=== PATIENT | female | born 1950 | race Caucasian/White ===

== ENCOUNTER 2019-08-12 12:48 | Inpatient (IN) | payer MEDICARE ==
[~2019-08-12] VITALS: Ht 167.6 cm; Wt 65.8 kg
[2019-08-12] MEDS ORDERED: DULO60 PO (13:12)
[2019-08-12] MEDS ORDERED: ROSU5 PO (13:13)
[2019-08-12] MEDS ORDERED: ACYC200 PO (13:14)
[2019-08-12] MEDS ORDERED: CENTRUM SILVER1 EAC2 PO (13:14)
[2019-08-12 13:25] LABS: BASOPHILS ABSOLUTE AUTO 0.04 K/mm3 (0.00-0.23); BASOPHILS PERCENT AUTO 0 % (0-2); EOSINOPHILS ABSOLUTE AUTO 0.06 K/mm3 (0.00-0.68); EOSINOPHILS PERCENT AUTO 0 % (0-6); Hematocrit 45.8 % (33.0-51.0); Hemoglobin 15.3 g/dL (11.5-16.0); IMMATURE GRAN ABSOLUTE AUTO 0.06 K/mm3 (0.00-0.10); IMMATURE GRAN PERCENT AUTO 0 % (0-1); LYMPHOCYTES ABSOLUTE AUTO 1.58 K/mm3 (0.84-5.20); LYMPHOCYTES PERCENT AUTO 8 % (21-46); MONOCYTES ABSOLUTE AUTO 1.68 K/mm3 (0.16-1.47); MONOCYTES PERCENT AUTO 9 % (4-13); Mean Corpuscular HGB 31.2 pg (26.0-34.0); Mean Corpuscular HGB Conc 33.4 g/dL (31.5-36.5); Mean Corpuscular Volume 93 fL (80-100); Mean Platelet Volume 8.6 fL (9.1-12.4); NEUTROPHILS ABSOLUTE AUTO 15.76 K/mm3 (1.96-9.15); NEUTROPHILS PERCENT AUTO 82 % (41-73); Platelet Count 251 K/mm3 (150-400); RDW Coefficient Variation 12.9 % (11.7-14.2); RDW Standard Deviation 44.2 fL (35.1-46.3); Red Blood Cell Count 4.91 M/mm3 (3.80-5.20); White Blood Cell Count 19.18 K/mm3 (4.00-11.30)
[2019-08-12 13:41] LABS: Alanine Aminotransfer (ALT/SGP 25 U/L (12-78); Albumin, Blood 3.7 g/dL (3.4-5.0); Albumin/Globulin Ratio 0.9 (0.8-1.8); Alk Phos 72 U/L (50-136); Anion Gap 8 mmol/L (6-16); Aspartate Aminotrans (AST/SGOT 22 U/L (12-37); Bilirubin, Total 0.8 mg/dL (0.1-1.0); Blood Urea Nitrogen 8 mg/dL (8-24); Bun/Creatinine Ratio 11.2 (12.0-20.0); CO2, Blood 26 mmol/L (21-32); Calcium, Blood 8.8 mg/dL (8.5-10.1); Chloride, Blood 103 mmol/L (98-108); Creatinine, Blood 0.71 mg/dL (0.40-1.00); Glomerular Filtration Rate >60 (60-); Glucose, Blood 90 mg/dL (70-99); Potassium, Blood 3.1 mmol/L (3.5-5.5); Sodium, Blood 137 mmol/L (136-145); Total Protein, Blood 7.7 g/dL (6.4-8.2)
[2019-08-12 14:42] LABS: Source, Urine Clean Catch
[2019-08-12 14:59] LABS: Bilirubin, Urine Neg (Neg); Blood, Urine 2+ (Neg); Glucose Qualitative, Urine Neg (Neg); Ketones, Urine 2+ (Neg); Leukocyte Esterase, Urine Neg (Neg); Nitrite, Urine Neg (Neg); Protein, Urine 2+ (Neg); Specific Gravity, Urine 1.015 (1.003-1.022); Urobilinogen, Urine NORM (Normal)
[2019-08-12 15:01] LABS: Color, Urine Yellow (P-Yellow)
[2019-08-12 15:02] LABS: Appearance, Urine Clear (Clear)
[2019-08-12 15:03] LABS: Bacteria Rare /hpf; Red Blood Cells, Urine 0-2 /hpf (0-2); Squamous Epithelial Cells Rare /hpf (Few); White Blood Cells, Urine 0-2 /hpf (0-5)
[2019-08-12 16:55] LABS: Adenovirus F 40/41 Not Detected (NOT DETECT); Astrovirus Not Detected (NOT DETECT); Campylobacter Sp Not Detected (NOT DETECT); Cryptosporidium Not Detected (NOT DETECT); Cyclospora Cayetanensis Not Detected (NOT DETECT); E. Coli O157 Not Detected (NOT DETECT); Entamoeba Histolytica Not Detected (NOT DETECT); Enteroaggregative E. coli-EAEC Not Detected (NOT DETECT); Enteropathogenic E. coli-EPEC Not Detected (NOT DETECT); Enterotoxigenic E. coli-ETEC Not Detected (NOT DETECT); Giardia Lamblia Not Detected (NOT DETECT); Norovirus GI/GII Not Detected (NOT DETECT); Plesiomonas Shigelloides Not Detected (NOT DETECT); Rotavirus A Not Detected (NOT DETECT); Salmonella Sp Not Detected (NOT DETECT); Sapovirus Not Detected (NOT DETECT); Shiga Toxin-prod E. coli-STEC Not Detected (NOT DETECT); Shigella/Enteroin E. coli-EIEC Not Detected (NOT DETECT); Vibrio Cholerae Not Detected (NOT DETECT); Vibrio Sp Not Detected (NOT DETECT); Yersinia Enterocolitica Not Detected (NOT DETECT)
[2019-08-12] MEDS ORDERED: OCUVITE EYE +1 EACH PO (19:03)
--- NOTE | 2019-08-13 03:05 | NUR ---
RN RESIDENTIAL SUMMARY Patient arrived on floor very painful and stooling almost constantly for first hour and a half in room. Stated bottom feels raw after 4 full days of this. As cramping and pain decreased, patient bowels began to slow down (albeit not a whole lot). Patient had recent jaw reconstructive surgery at [facility] 2nd to sequela of her Rheumatoid arthritis. She is up independently in room, bed locked and low, call light in place, patients questions answered. Patient oob extremely frequently, and doesn't want to connect and reconnect PAS stockings. Have left her knee high teds to put on in AM. Will request Day RN notify MD of patient request for DVT prophlaxis change.
--- NOTE | 2019-08-13 05:27 | NUR ---
SERVICER TRAVEL TRAILERS SUMMARY ADDENDUM 2ND POTASSIUM RIDER HUNG CONCURRENT PIGGYBACK WITH PRIMARY BAG TO RUN SLOWLY AT 2MEQ PER HOUR. ADDING BAG TO PRIMARY OF NS WITH 20MEQ DISCUSSED WITH PHARMACIST FIRST PATIENT WAS UNABLE TO TOLERATE INITIAL POTASSIUM BAG AT ANY RATE GREATER THAN 2 MEQ PER HOUR. LAB WAS ASKED TO RETURN AT 0930 FOR DRAW.
[2019-08-13 09:51] LABS: BASOPHILS ABSOLUTE AUTO 0.02 K/mm3 (0.00-0.23); BASOPHILS PERCENT AUTO 0 % (0-2); EOSINOPHILS ABSOLUTE AUTO 0.08 K/mm3 (0.00-0.68); EOSINOPHILS PERCENT AUTO 1 % (0-6); Hematocrit 36.7 % (33.0-51.0); Hemoglobin 11.8 g/dL (11.5-16.0); IMMATURE GRAN ABSOLUTE AUTO 0.01 K/mm3 (0.00-0.10); IMMATURE GRAN PERCENT AUTO 0 % (0-1); LYMPHOCYTES ABSOLUTE AUTO 1.04 K/mm3 (0.84-5.20); LYMPHOCYTES PERCENT AUTO 12 % (21-46); MONOCYTES ABSOLUTE AUTO 0.69 K/mm3 (0.16-1.47); MONOCYTES PERCENT AUTO 8 % (4-13); Mean Corpuscular HGB 30.6 pg (26.0-34.0); Mean Corpuscular HGB Conc 32.2 g/dL (31.5-36.5); Mean Corpuscular Volume 95 fL (80-100); Mean Platelet Volume 8.6 fL (9.1-12.4); NEUTROPHILS ABSOLUTE AUTO 6.71 K/mm3 (1.96-9.15); NEUTROPHILS PERCENT AUTO 79 % (41-73); Platelet Count 184 K/mm3 (150-400); RDW Standard Deviation 45.3 fL (35.1-46.3); Red Blood Cell Count 3.86 M/mm3 (3.80-5.20); White Blood Cell Count 8.55 K/mm3 (4.00-11.30)
[2019-08-13 10:03] LABS: Anion Gap 3 mmol/L (6-16); Blood Urea Nitrogen 5 mg/dL (8-24); Bun/Creatinine Ratio 9.5 (12.0-20.0); CO2, Blood 29 mmol/L (21-32); Calcium, Blood 8.2 mg/dL (8.5-10.1); Chloride, Blood 106 mmol/L (98-108); Creatinine, Blood 0.53 mg/dL (0.40-1.00); Glomerular Filtration Rate >60 (60-); Glucose, Blood 105 mg/dL (70-99); Sodium, Blood 138 mmol/L (136-145)
--- NOTE | 2019-08-13 11:06 | NUR ---
PER OK TO USE CHET HOSE AND CANCEL SCD'S.
--- NOTE | 2019-08-13 15:25 | NUR ---
ALERT. ORIENTED. INDEPENDENT IN ROOM W/STEADY GAIT. MULTIPLE WATERY STOOLS. MEDS FOR ABD PAIN W/TORADOL WORKING WELL. UNLABORED RESPIRATIONS. ABLE TO MAKE NEEDS KNOWN. INDEPENDENT IN SHOWER. BED IN LOW POSITION. USING HOME LAPTOP MOST OF SHIFT. [facility]
[2019-08-14 05:30] LABS: BASOPHILS ABSOLUTE AUTO 0.01 K/mm3 (0.00-0.23); BASOPHILS PERCENT AUTO 0 % (0-2); EOSINOPHILS ABSOLUTE AUTO 0.11 K/mm3 (0.00-0.68); EOSINOPHILS PERCENT AUTO 1 % (0-6); Hematocrit 38.2 % (33.0-51.0); Hemoglobin 12.2 g/dL (11.5-16.0); IMMATURE GRAN ABSOLUTE AUTO 0.01 K/mm3 (0.00-0.10); IMMATURE GRAN PERCENT AUTO 0 % (0-1); LYMPHOCYTES ABSOLUTE AUTO 0.88 K/mm3 (0.84-5.20); LYMPHOCYTES PERCENT AUTO 11 % (21-46); MONOCYTES ABSOLUTE AUTO 0.68 K/mm3 (0.16-1.47); MONOCYTES PERCENT AUTO 9 % (4-13); Mean Corpuscular HGB 30.4 pg (26.0-34.0); Mean Corpuscular HGB Conc 31.9 g/dL (31.5-36.5); Mean Corpuscular Volume 95 fL (80-100); Mean Platelet Volume 8.6 fL (9.1-12.4); NEUTROPHILS ABSOLUTE AUTO 6.03 K/mm3 (1.96-9.15); NEUTROPHILS PERCENT AUTO 78 % (41-73); Platelet Count 202 K/mm3 (150-400); RDW Coefficient Variation 12.6 % (11.7-14.2); RDW Standard Deviation 44.4 fL (35.1-46.3); Red Blood Cell Count 4.01 M/mm3 (3.80-5.20); White Blood Cell Count 7.72 K/mm3 (4.00-11.30)
[2019-08-14 05:54] LABS: Alanine Aminotransfer (ALT/SGP 27 U/L (12-78); Albumin, Blood 3.1 g/dL (3.4-5.0); Alk Phos 53 U/L (50-136); Anion Gap 3 mmol/L (6-16); Aspartate Aminotrans (AST/SGOT 22 U/L (12-37); Bilirubin, Total 0.7 mg/dL (0.1-1.0); Blood Urea Nitrogen 3 mg/dL (8-24); Bun/Creatinine Ratio 6.3 (12.0-20.0); CO2, Blood 30 mmol/L (21-32); Calcium, Blood 8.5 mg/dL (8.5-10.1); Chloride, Blood 106 mmol/L (98-108); Creatinine, Blood 0.48 mg/dL (0.40-1.00); Globulin, Blood 3.2 g/dL (2.2-4.0); Glomerular Filtration Rate >60 (60-); Glucose, Blood 106 mg/dL (70-99); Potassium, Blood 4.2 mmol/L (3.5-5.5); Sodium, Blood 139 mmol/L (136-145); Total Protein, Blood 6.3 g/dL (6.4-8.2)
--- NOTE | 2019-08-14 07:01 | NUR ---
SHIFT SUMMARY: PATIENT IS A&OX4, 3 SMALL LOOSE STOOLS THIS SHIFT, NO NAUSEA, REPORTING ABD. PAIN 01/06, IV DILAUDID AND TORADOL ARE ALERTANTED TO PROVIDE FAIR PAIN CONTROL. PATIENT WOKE THIS AM WITH HEAD ACHE 01/06, DR LINDSEY WAS NOTIFIED AND AN ORDER FOR TYLENOL WAS OBTAINED AND MED WAS GIVEN WITH GOOD EFFECT, PATIENT IS NOW SLEEPING. PATIENT REMAINS IN CONTACT ISOLATION FOR C-DIFF.
[2019-08-14] MEDS ORDERED: [UNRECOGNIZED DRUG - REMARK] PO (09:18)
[2019-08-14] MEDS ORDERED: Vsl#3 Capsule1 EACH PO (09:20)
[2019-08-14] MEDS ORDERED: ONDA4ODT MM (09:21)
[2019-08-14] MEDS ORDERED: K-Dur20 MEQ PO (09:26)
[2019-08-14] MEDS ORDERED: PROM25 PO (09:27)
[2019-08-14] MEDS ORDERED: VANCOMYCIN PO (09:36)
--- NOTE | 2019-08-14 17:17 | NUR ---
THE PATIENT HAS BEEN IN PAIN MUCH OF THE DAY, REQUESTING IV DILAUDID JUST ABOUT EVERY 2 HOURS WITH PAIN RATING UP TO AN 8/10 IN HER ABDOMEN. VITALS HAVE BEEN STABLE AND WNL. SHE REMAINS ON IV ABX WITHOUT S/SX OF ADVERSE REACTIONS NOTED OR REPORTED. SHE IN INDEPENDENT IN HER ROOM AND CALLS APPROPRIATELY FOR STAFF ASSIST NEEDED. PATIENT TO STAY ONE MORE NIGHT IN HOPES FOR BETTER PAIN CONTROL.
--- NOTE | 2019-08-15 07:03 | NUR ---
SHIFT SUMMARY: PATIENT IS A&OX4, CONTINUES TO REPORT ABD. PAIN 8/. PATIENT IS CAUTIONED TO TO NOT ADVANCE DIET IF PAIN CONTINUES TO HAVE SPIKES, PATIENT IS NOT COMPLIANT WITH SLOW ADVANCE OF DIET. NO COMPLAINTS OF NAUSEA, VS ARE STABLE. REPORTED ONE SMALL LOOSE STOOL LAST NIGHT AND LARGE AMOUNTS OF FLATUS. TORADOL WAS GIVEN WITH POOR EFFECT, "IT DOES NOT WORK AT ALL FOR ME". DILAUDID WAS GIVEN WITH GOOD EFFECT, "IT JUST DOES NOT LAST LONG". PATIENT STATES.
[2019-08-15 09:19] LABS: BASOPHILS ABSOLUTE AUTO 0.01 K/mm3 (0.00-0.23); BASOPHILS PERCENT AUTO 0 % (0-2); EOSINOPHILS ABSOLUTE AUTO 0.14 K/mm3 (0.00-0.68); EOSINOPHILS PERCENT AUTO 3 % (0-6); Hematocrit 37.1 % (33.0-51.0); Hemoglobin 12.2 g/dL (11.5-16.0); IMMATURE GRAN ABSOLUTE AUTO 0.01 K/mm3 (0.00-0.10); IMMATURE GRAN PERCENT AUTO 0 % (0-1); LYMPHOCYTES ABSOLUTE AUTO 1.07 K/mm3 (0.84-5.20); LYMPHOCYTES PERCENT AUTO 20 % (21-46); MONOCYTES ABSOLUTE AUTO 0.57 K/mm3 (0.16-1.47); MONOCYTES PERCENT AUTO 11 % (4-13); Mean Corpuscular HGB 30.9 pg (26.0-34.0); Mean Corpuscular HGB Conc 32.9 g/dL (31.5-36.5); Mean Corpuscular Volume 94 fL (80-100); Mean Platelet Volume 8.9 fL (9.1-12.4); NEUTROPHILS ABSOLUTE AUTO 3.46 K/mm3 (1.96-9.15); NEUTROPHILS PERCENT AUTO 66 % (41-73); Platelet Count 231 K/mm3 (150-400); RDW Coefficient Variation 12.1 % (11.7-14.2); RDW Standard Deviation 42.4 fL (35.1-46.3); Red Blood Cell Count 3.95 M/mm3 (3.80-5.20); White Blood Cell Count 5.26 K/mm3 (4.00-11.30)
[2019-08-15] MEDS ORDERED: METR500 PO (11:19)
[2019-08-15] MEDS ORDERED: CIPR500 PO (11:20)
[2019-08-15] MEDS ORDERED: HYDR1TAB94 PO (11:20)
[2019-08-15] MEDS ORDERED: VANCOCIN HCL125 MG PO (11:30)
--- NOTE | 2019-08-15 11:57 | NUR ---
REVIEW D'C. 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 REVIEW MEDS. DISCUSS GOOD HANDWASHING. DISCUSS PAIN MEDS. AMBULATORY W/STEADY GAIT IN ROOM. AWAITING RIDE
--- NOTE | 2019-08-15 12:30 | NUR ---
IN W/C TO POV W/RN AND S.O.
== END 2019-08-15 12:30 | disposition home or self-care (01) | DRG 373 ==
LOC: ER 12:48 → MEDS 12:49 → ENPENDDIS 08-14 10:49 → EDPENDDISDT 08-15 10:46 → EDPENDDISTM 08-15 10:46 → MEDS 08-15 12:30
PROVIDERS: Emergency Medicine; Physician Assistant; ADMIT Family Medicine
DX: A04.72 Enterocolitis due to Clostridium difficile, not specified as recurrent (principal); F32.9 Major depressive disorder, single episode, unspecified; E78.5 Hyperlipidemia, unspecified; E87.6 Hypokalemia; Z87.891 Personal history of nicotine dependence; K58.9 Irritable bowel syndrome, unspecified; E86.0 Dehydration
CPT/HCPCS: 0097U; 36415; 74177; 80048; 80053; 81001; 83605; 83690; 83735; 85025; 87324; 96361; 96365; 96366; 96367; 96368; 96374; 96374-59; 96375; 96376; 99285-25; A9270; C9113; G0378; J0744; J1170; J1885; J2405; J3370; J3480; J7050; J7120; Q9967